=== PATIENT | female | born 1940 | race Caucasian/White ===

== ENCOUNTER 2022-05-26 23:37 | Emergency (ER) | payer MEDICARE ==
[~2022-05-26] VITALS: Ht 172.7 cm; Wt 66.0 kg
[2022-05-26 23:55] VITALS: BP 113/53
[2022-05-27] VITALS (12 sets, daily range): BP systolic 100–124; BP diastolic 50–88
[2022-05-27 00:15] LABS: BASO% 0.6 % (0-3); EOS% 4.2 % (0-8); HEMATOCRIT 41.7 % (37.0-47.0); HEMOGLOBIN 13.2 g/dl (12.0-16.0); LYMPH% 24.6 % (15-41); MEAN CELL VOLUME 107.2 fL CALC (80.0-100.0); MEAN CORPUSCULAR HGB 33.9 pG CALC (26.0-32.0); MEAN CORPUSCULAR HGB CONC 31.7 g/dL CAL (32.0-36.0); MONO% 8.1 % (2-13); NEUT# 2.23 thou/uL (2.00-7.15); NEUT% 62.5 % (42-76); RED BLOOD COUNT 3.89 mill/uL (4.20-5.60); RED CELL DISTRI WIDTH 12.8 % (11.5-15.5)
[2022-05-27 00:16] LABS: ANION GAP 7 (6-22 (CALC)); BUN 17 mg/dL (8-23); BUN/CREATININE RATIO 25 (12-20 (CALC)); CARBON DIOXIDE 30 mmol/l (22-30); CHLORIDE 104 mmol/l (95-108); CREATININE 0.7 mg/dL (0.5-1.0); GFR FOR AFR.AMER. > 60 ML/MIN (>=60 (CALC)); GFR OTHER RACES > 60 ML/MIN (>=60 (CALC)); POTASSIUM 3.6 mmol/l (3.5-5.1); SODIUM 136 mmol/l (137-146)
== END 2022-05-27 02:30 | disposition home or self-care (01) ==
LOC: ED 23:37
PROVIDERS: Family Medicine
DX: E10.649 Type 1 diabetes mellitus with hypoglycemia without coma (principal); I10 Essential (primary) hypertension; F03.90 Unspecified dementia, unspecified severity, without behavioral disturbance, psychotic disturbance, mood disturbance, and anxiety

== ENCOUNTER 2022-07-25 10:33 | Emergency (ER) | payer MEDICARE ==
[~2022-07-25] VITALS: Ht 172.7 cm; Wt 65.0 kg
[2022-07-25] MEDS ORDERED: PREDNISONE50 MG PO ×2 (10:41→13:04)
[2022-07-25] MEDS ORDERED: PERMETHRIN5 % EX ×2 (10:41→13:04)
[2022-07-25] MEDS ORDERED: ALL DAY10 MG PO ×2 (10:41→13:04)
[2022-07-25 10:47] VITALS: BP 109/59
[2022-07-25 11:00] VITALS: BP 110/50
[2022-07-25 11:30] VITALS: BP 115/57
[2022-07-25 12:00] VITALS: BP 129/60
[2022-07-25 12:31] VITALS: BP 103/81
== END 2022-07-25 12:49 | disposition home or self-care (01) ==
LOC: ED 10:33
DX: R21 Rash and other nonspecific skin eruption (principal); L29.9 Pruritus, unspecified; I10 Essential (primary) hypertension; E11.9 Type 2 diabetes mellitus without complications; F03.90 Unspecified dementia, unspecified severity, without behavioral disturbance, psychotic disturbance, mood disturbance, and anxiety

== ENCOUNTER 2022-08-12 17:13 | Observation (INO) | payer MEDICARE ==
[~2022-08-12] VITALS: Ht 172.7 cm; Wt 49.7 kg
[2022-08-12] VITALS (21 sets, daily range): BP systolic 98–138; BP diastolic 44–83
[~2022-08-12 17:13] MED LIST: ALL DAY10 MG PO; PERMETHRIN5 % EX; PREDNISONE50 MG PO
[2022-08-12 18:06] LABS: BASO% 1.1 % (0-3); EOS% 7.6 % (0-8); HEMATOCRIT 40.4 % (37.0-47.0); HEMOGLOBIN 12.9 g/dl (12.0-16.0); IMMATURE GRANULOCYTES 0.2 % (0.0-5.0); LYMPH% 24.4 % (15-41); MEAN CORPUSCULAR HGB 32.6 pG CALC (26.0-32.0); MEAN CORPUSCULAR HGB CONC 31.9 g/dL CAL (32.0-36.0); MONO% 8.2 % (2-13); NEUT# 2.78 thou/uL (2.00-7.15); NEUT% 58.5 % (42-76); RED BLOOD COUNT 3.96 mill/uL (4.20-5.60); RED CELL DISTRI WIDTH 11.6 % (11.5-15.5)
[2022-08-12] MEDS ORDERED: ASPIRINCHW 81MG PO (18:08)
[2022-08-12] MEDS ORDERED: ATORVASTATIN CA20 MG PO (18:10)
[2022-08-12] MEDS ORDERED: PLAVIX75 MG PO (18:11)
[2022-08-12] MEDS ORDERED: CITALOPRAM20 MG PO (18:11)
[2022-08-12] MEDS ORDERED: DONEPEZIL10 MG PO (18:12)
[2022-08-12] MEDS ORDERED: HUMALOG100 UNIT/M SC (18:21)
[2022-08-12 18:26] LABS: ALKALINE PHOSPHATASE 76 u/l (38-126); ANION GAP 11 (6-22 (CALC)); BILIRUBIN, TOTAL 0.2 mg/dL (0.02-1.3); BUN 18 mg/dL (8-23); BUN/CREATININE RATIO 26 (12-20 (CALC)); CARBON DIOXIDE 26 mmol/l (22-30); CHLORIDE 104 mmol/l (95-108); CREATININE 0.7 mg/dL (0.5-1.0); GFR FOR AFR.AMER. > 60 ML/MIN (>=60 (CALC)); GFR OTHER RACES > 60 ML/MIN (>=60 (CALC)); POTASSIUM 3.5 mmol/l (3.5-5.1); SGOT/AST 26 u/l (9-36); SODIUM 138 mmol/l (137-146)
[2022-08-12] MEDS ORDERED: HUMALOG100 UNIT SC (18:30)
[2022-08-12] MEDS ORDERED: STROMECTOL3 MG PO (18:32)
[2022-08-12] MEDS ORDERED: LANTUS100 UNIT (18:33)
[2022-08-12] MEDS ORDERED: MIDODRINE10 MG PO (18:33)
[2022-08-12] MEDS ORDERED: LEVOTHYROXIN75 MC1 PO (18:37)
[2022-08-12] MEDS ORDERED: MELATONIN3 M1 PO (18:37)
[2022-08-12] MEDS ORDERED: KETOCONAZOLE2 % EX (18:38)
[2022-08-13] VITALS (33 sets, daily range): BP systolic 107–145; BP diastolic 55–128
[2022-08-13 02:41] LABS: URINE BILIRUBIN - DIPSTICK NEGATIVE (NEGATIVE); URINE BLOOD DIPSTICK NEGATIVE (NEGATIVE); URINE COLOR YELLOW; URINE GLUCOSE - DIPSTICK >=1000 mg/dL (NEGATIVE); URINE KETONE NEGATIVE (NEGATIVE); URINE PH 5.5 (4.5-8.0); URINE PROTEIN - DIPSTICK NEGATIVE (NEG-TRACE); URINE UROBILINOGEN - DIPSTICK 0.2 E.U./dL (0.2)
[2022-08-13 02:42] LABS: URINE LEUK ESTERASE NEGATIVE (NEGATIVE); URINE NITRITE - DIPSTICK POSITIVE (Negative)
[2022-08-13 02:48] LABS: URINE BACTERIA MANY hpf; URINE EPITHELIAL CELLS FEW EPI/hpf (0-FEW)
[2022-08-13 06:22] LABS: MAGNESIUM 1.9 mg/dL (1.6-2.3)
[2022-08-13] MEDS ORDERED: [UNRECOGNIZED DRUG - OTHER] EX (08:29)
[2022-08-13 09:29] LABS: HEMATOCRIT 39.4 % (37.0-47.0); HEMOGLOBIN 12.7 g/dl (12.0-16.0); MEAN CELL VOLUME 99.7 fL CALC (80.0-100.0); MEAN CORPUSCULAR HGB 32.2 pG CALC (26.0-32.0); MEAN CORPUSCULAR HGB CONC 32.2 g/dL CAL (32.0-36.0); RED BLOOD COUNT 3.95 mill/uL (4.20-5.60); RED CELL DISTRI WIDTH 11.6 % (11.5-15.5)
[2022-08-13 09:35] LABS: ALBUMIN 3.3 g/dL (3.2-5.0); ALKALINE PHOSPHATASE 93 u/l (38-126); ANION GAP 9 (6-22 (CALC)); BILIRUBIN, TOTAL 0.2 mg/dL (0.02-1.3); BUN 15 mg/dL (8-23); BUN/CREATININE RATIO 27 (12-20 (CALC)); CARBON DIOXIDE 28 mmol/l (22-30); CHLORIDE 101 mmol/l (95-108); CREATININE 0.6 mg/dL (0.5-1.0); GFR FOR AFR.AMER. > 60 ML/MIN (>=60 (CALC)); GFR OTHER RACES > 60 ML/MIN (>=60 (CALC)); POTASSIUM 4.2 mmol/l (3.5-5.1); SGOT/AST 21 u/l (9-36); SODIUM 134 mmol/l (137-146); TOTAL PROTEIN 5.8 g/dL (6.3-8.2)
== END 2022-08-13 13:45 ==
LOC: ED 17:13 → ICU 19:06
PROVIDERS: Nurse Practitioner; ADMIT Internal Medicine; ATTEND Internal Medicine
DX: E10.649 Type 1 diabetes mellitus with hypoglycemia without coma (principal); I10 Essential (primary) hypertension; J44.9 Chronic obstructive pulmonary disease, unspecified; E03.9 Hypothyroidism, unspecified; F03.90 Unspecified dementia, unspecified severity, without behavioral disturbance, psychotic disturbance, mood disturbance, and anxiety; B86 Scabies; Z79.4 Long term (current) use of insulin; Z20.822 Contact with and (suspected) exposure to COVID-19

== ENCOUNTER 2022-12-25 17:37 | Emergency (ER) | payer MEDICARE ==
[~2022-12-25] VITALS: Ht 172.7 cm; Wt 58.0 kg
[2022-12-25] VITALS (7 sets, daily range): BP systolic 131–164; BP diastolic 61–111
[~2022-12-25 17:37] MED LIST changes: +ASPIRINCHW 81MG PO; +ATORVASTATIN CA20 MG PO; +CITALOPRAM20 MG PO; +DONEPEZIL10 MG PO; +HUMALOG100 UNIT SC; +HUMALOG100 UNIT/M SC; +KETOCONAZOLE2 % EX; +LANTUS100 UNIT; +LEVOTHYROXIN75 MC1 PO; +MELATONIN3 M1 PO; +MIDODRINE10 MG PO; +PLAVIX75 MG PO; +STROMECTOL3 MG PO; +[UNRECOGNIZED DRUG - OTHER] EX
[2022-12-25 18:17] LABS: URINE BILIRUBIN - DIPSTICK Negative (NEGATIVE); URINE BLOOD DIPSTICK Trace-lysed (NEGATIVE); URINE GLUCOSE - DIPSTICK >=1000 mg/dL (NEGATIVE); URINE KETONE 15 mg/dL (NEGATIVE); URINE LEUK ESTERASE Negative (NEGATIVE); URINE NITRITE - DIPSTICK Negative (Negative); URINE PH 6.5 (4.5-8.0); URINE PROTEIN - DIPSTICK Negative (NEG-TRACE); URINE SPECIFIC GRAVITY 1.015; URINE UROBILINOGEN - DIPSTICK 0.2 E.U./dL (0.2)
[2022-12-25 18:17] LABS: EOS% 4.2 % (0-8); HEMATOCRIT 40.7 % (37.0-47.0); HEMOGLOBIN 13.3 g/dl (12.0-16.0); IMMATURE GRANULOCYTES 0.2 % (0.0-5.0); LYMPH% 28.7 % (15-41); MEAN CORPUSCULAR HGB 32.7 pG CALC (26.0-32.0); MEAN CORPUSCULAR HGB CONC 32.7 g/dL CAL (32.0-36.0); MONO% 6.1 % (2-13); NEUT# 2.44 thou/uL (2.00-7.15); NEUT% 59.8 % (42-76); RED BLOOD COUNT 4.07 mill/uL (4.20-5.60); RED CELL DISTRI WIDTH 11.6 % (11.5-15.5)
[2022-12-25 18:18] LABS: URINE COLOR Yellow
[2022-12-25 18:22] LABS: ALBUMIN 3.9 g/dL (3.2-5.0); ALKALINE PHOSPHATASE 131 u/l (38-126); ANION GAP 12 (6-22 (CALC)); BUN 20 mg/dL (8-23); BUN/CREATININE RATIO 27 (12-20 (CALC)); CARBON DIOXIDE 29 mmol/l (22-30); CHLORIDE 95 mmol/l (95-108); CREATININE 0.7 mg/dL (0.5-1.0); GFR FOR AFR.AMER. > 60 ML/MIN (>=60 (CALC)); GFR OTHER RACES > 60 ML/MIN (>=60 (CALC)); LIPASE 137 u/l (23-300); POTASSIUM 4.9 mmol/l (3.5-5.1); SGOT/AST 29 u/l (9-36); SODIUM 131 mmol/l (137-146); TOTAL PROTEIN 6.3 g/dL (6.3-8.2)
[2022-12-25 18:29] LABS: BILIRUBIN, TOTAL 0.6 mg/dL (0.02-1.3)
[2022-12-25 18:30] LABS: ACT PARTIAL THROMBO TIME 26.1 SECONDS (20.0-32.5); INTERNATIONAL NORMALIZED RATIO 1.1 RATIO (0.7-1.3); PROTHROMBIN TIME 10.2 SECONDS (9.0-12.5)
== END 2022-12-25 21:06 | disposition home or self-care (01) ==
LOC: ED 17:37
PROVIDERS: Emergency Medicine
DX: E11.65 Type 2 diabetes mellitus with hyperglycemia (principal); I10 Essential (primary) hypertension; F03.90 Unspecified dementia, unspecified severity, without behavioral disturbance, psychotic disturbance, mood disturbance, and anxiety; F17.200 Nicotine dependence, unspecified, uncomplicated; Z79.4 Long term (current) use of insulin

== ENCOUNTER 2023-01-16 22:49 | Emergency (ER) | payer MEDICARE ==
[2023-01-16 22:57] VITALS: BP 124/87
[2023-01-16 23:01] VITALS: BP 140/69
[2023-01-16 23:15] VITALS: BP 136/72
[2023-01-16 23:38] LABS: BASO% 0.9 % (0-3); EOS% 4.6 % (0-8); HEMATOCRIT 39.1 % (37.0-47.0); HEMOGLOBIN 12.4 g/dl (12.0-16.0); LYMPH% 29.6 % (15-41); MEAN CELL VOLUME 103.4 fL CALC (80.0-100.0); MEAN CORPUSCULAR HGB 32.8 pG CALC (26.0-32.0); MEAN CORPUSCULAR HGB CONC 31.7 g/dL CAL (32.0-36.0); MONO% 7.9 % (2-13); NEUT# 2.46 thou/uL (2.00-7.15); RED BLOOD COUNT 3.78 mill/uL (4.20-5.60); RED CELL DISTRI WIDTH 12.2 % (11.5-15.5)
[2023-01-16 23:57] LABS: ALKALINE PHOSPHATASE 129 u/l (38-126); ANION GAP 11 (6-22 (CALC)); BILIRUBIN, TOTAL 0.6 mg/dL (0.02-1.3); BUN 18 mg/dL (8-23); BUN/CREATININE RATIO 23 (12-20 (CALC)); CARBON DIOXIDE 25 mmol/l (22-30); CHLORIDE 100 mmol/l (95-108); CREATININE 0.8 mg/dL (0.5-1.0); GFR FOR AFR.AMER. > 60 ML/MIN (>=60 (CALC)); GFR OTHER RACES > 60 ML/MIN (>=60 (CALC)); LIPASE 143 u/l (23-300); POTASSIUM 4.3 mmol/l (3.5-5.1); SGOT/AST 34 u/l (9-36); SODIUM 132 mmol/l (137-146); TOTAL PROTEIN 6.8 g/dL (6.3-8.2)
[2023-01-17 02:02] LABS: URINE BILIRUBIN - DIPSTICK Negative (NEGATIVE); URINE BLOOD DIPSTICK Trace-intact (NEGATIVE); URINE GLUCOSE - DIPSTICK 500 mg/dL (NEGATIVE); URINE KETONE Negative (NEGATIVE); URINE LEUK ESTERASE Negative (NEGATIVE); URINE UROBILINOGEN - DIPSTICK 0.2 E.U./dL (0.2)
[2023-01-17 02:03] LABS: URINE COLOR Yellow; URINE NITRITE - DIPSTICK Positive (Negative)
[2023-01-17 02:04] LABS: URINE PROTEIN - DIPSTICK Negative (NEG-TRACE)
[2023-01-17 02:13] LABS: URINE BACTERIA MANY hpf; URINE EPITHELIAL CELLS FEW EPI/hpf (0-FEW)
[2023-01-17 02:52] VITALS: BP 136/72
== END 2023-01-17 08:44 | disposition home or self-care (01) ==
LOC: ED 22:49
PROVIDERS: Emergency Medicine
DX: E11.65 Type 2 diabetes mellitus with hyperglycemia (principal); I10 Essential (primary) hypertension; I25.5 Ischemic cardiomyopathy; E78.5 Hyperlipidemia, unspecified; E03.9 Hypothyroidism, unspecified; F03.A0 Unspecified dementia, mild, without behavioral disturbance, psychotic disturbance, mood disturbance, and anxiety; F41.9 Anxiety disorder, unspecified; F32.A Depression, unspecified; Z79.4 Long term (current) use of insulin

== ENCOUNTER 2023-05-01 08:54 | Emergency (ER) | payer MEDICARE ==
[2023-05-01] VITALS (18 sets, daily range): BP systolic 86–150; BP diastolic 49–74
[~2023-05-01] VITALS: Ht 172.7 cm; Wt 58.0 kg
[~2023-05-01 08:54] MED LIST changes: +LYUMJEV100 UNIT/M; +LYUMJEV100 UNIT/M SC; +OMNICEF300 MG PO
[2023-05-01 09:32] LABS: BASO% 0.3 % (0-3); EOS% 0.8 % (0-8); HEMATOCRIT 43.6 % (37.0-47.0); HEMOGLOBIN 14.1 g/dl (12.0-16.0); LYMPH% 11.5 % (15-41); MEAN CELL VOLUME 102.3 fL CALC (80.0-100.0); MEAN CORPUSCULAR HGB 33.1 pG CALC (26.0-32.0); MEAN CORPUSCULAR HGB CONC 32.3 g/dL CAL (32.0-36.0); MONO% 1.9 % (2-13); NEUT# 5.42 thou/uL (2.00-7.15); NEUT% 85.5 % (42-76); RED BLOOD COUNT 4.26 mill/uL (4.20-5.60); RED CELL DISTRI WIDTH 11.8 % (11.5-15.5)
[2023-05-01 09:42] LABS: BUN 22 mg/dL (8-23); BUN/CREATININE RATIO 34 (12-20 (CALC)); CARBON DIOXIDE 23 mmol/l (22-30); CHLORIDE 100 mmol/l (95-108); CREATININE 0.7 mg/dL (0.5-1.0); GFR FOR AFR.AMER. > 60 ML/MIN (>=60 (CALC)); GFR OTHER RACES > 60 ML/MIN (>=60 (CALC)); SGOT/AST 31 u/l (9-36); SODIUM 135 mmol/l (137-146); TOTAL PROTEIN 7.3 g/dL (6.3-8.2)
[2023-05-01 09:50] LABS: ALBUMIN 4.7 g/dL (3.2-5.0); ALKALINE PHOSPHATASE 111 u/l (38-126); ANION GAP 17 (6-22 (CALC)); BILIRUBIN, TOTAL 1.2 mg/dL (0.02-1.3); POTASSIUM 4.7 mmol/l (3.5-5.1)
[2023-05-01 10:47] LABS: URINE BILIRUBIN - DIPSTICK Negative (NEGATIVE); URINE BLOOD DIPSTICK Negative (NEGATIVE); URINE GLUCOSE - DIPSTICK 500 mg/dL (NEGATIVE); URINE KETONE 80 mg/dL (NEGATIVE); URINE LEUK ESTERASE Negative (NEGATIVE); URINE NITRITE - DIPSTICK Negative (Negative); URINE PH 5.5 (4.5-8.0); URINE PROTEIN - DIPSTICK Negative (NEG-TRACE); URINE UROBILINOGEN - DIPSTICK 0.2 E.U./dL (0.2)
[2023-05-01 10:51] LABS: URINE COLOR Yellow
== END 2023-05-01 15:33 | disposition home or self-care (01) ==
LOC: ED 08:54
PROVIDERS: Emergency Medicine
DX: E11.65 Type 2 diabetes mellitus with hyperglycemia (principal); I10 Essential (primary) hypertension; I25.10 Atherosclerotic heart disease of native coronary artery without angina pectoris; F03.A4 Unspecified dementia, mild, with anxiety; F32.A Depression, unspecified; J44.9 Chronic obstructive pulmonary disease, unspecified; Z79.4 Long term (current) use of insulin; Z72.0 Tobacco use

== ENCOUNTER 2023-05-19 07:11 | Inpatient (IN) | payer MEDICARE ==
[2023-05-19] VITALS (94 sets, daily range): BP systolic 66–150; BP diastolic 36–81
[~2023-05-19] VITALS: Ht 172.7 cm; Wt 55.0 kg
[~2023-05-19 07:11] MED LIST changes: +ALL DAY ALLG10 MG PO; +ARICEPT PO; +PROTONIX40 M2 PO
--- NOTE | 2023-05-19 07:11 | NUR ---
PT TO ER BED 10 FOR TRIAGE AT THIS TIME VIA EMS STRETCHER IN NO APPARENT DISTRESS. IV INITIATED, ACCUCHECK COMPLETED WITH A RESULT OF 519, LABS COLLECTED, AND EKG COMPLETED. VSS. CALL LIGHT WITHIN REACH AND PT AWAITING EDP EXAM AND ORDERS.
[2023-05-19 07:43] LABS: BASO% 0.6 % (0-3); EOS% 1.2 % (0-8); HEMATOCRIT 43.1 % (37.0-47.0); HEMOGLOBIN 13.6 g/dl (12.0-16.0); IMMATURE GRANULOCYTES 0.2 % (0.0-5.0); LYMPH% 14.6 % (15-41); MEAN CELL VOLUME 102.9 fL CALC (80.0-100.0); MEAN CORPUSCULAR HGB 32.5 pG CALC (26.0-32.0); MEAN CORPUSCULAR HGB CONC 31.6 g/dL CAL (32.0-36.0); MONO% 3.2 % (2-13); NEUT# 5.26 thou/uL (2.00-7.15); NEUT% 80.2 % (42-76); RED BLOOD COUNT 4.19 mill/uL (4.20-5.60); RED CELL DISTRI WIDTH 12.7 % (11.5-15.5)
[2023-05-19 07:54] LABS: URINE BILIRUBIN - DIPSTICK Negative (NEGATIVE); URINE BLOOD DIPSTICK Negative (NEGATIVE); URINE GLUCOSE - DIPSTICK 500 mg/dL (NEGATIVE); URINE KETONE 40 mg/dL (NEGATIVE); URINE LEUK ESTERASE Negative (NEGATIVE); URINE NITRITE - DIPSTICK Negative (Negative); URINE PH 5.5 (4.5-8.0); URINE PROTEIN - DIPSTICK Negative (NEG-TRACE); URINE UROBILINOGEN - DIPSTICK 0.2 E.U./dL (0.2)
[2023-05-19 07:55] LABS: URINE COLOR Yellow
--- NOTE | 2023-05-19 08:00 | NUR ---
PT SITTING UP IN BED STILL HAVING SOME NAUSEA, VSS, NAD NOTED, CALL LIGHT IN REACH.
[2023-05-19] MEDS ORDERED: HUMALOG100 UNIT/M SC (08:15)
[2023-05-19 08:27] LABS: ALKALINE PHOSPHATASE 93 u/l (38-126); BUN 19 mg/dL (8-23); BUN/CREATININE RATIO 28 (12-20 (CALC)); CHLORIDE 100 mmol/l (95-108); CREATININE 0.7 mg/dL (0.5-1.0); GFR FOR AFR.AMER. > 60 ML/MIN (>=60 (CALC)); GFR OTHER RACES > 60 ML/MIN (>=60 (CALC)); SGOT/AST 34 u/l (9-36); SODIUM 135 mmol/l (137-146); TOTAL PROTEIN 6.7 g/dL (6.3-8.2)
[2023-05-19 08:28] LABS: TSH, 3RD GENERATION 1.34 uIU/mL (0.47 - 4.68)
--- NOTE | 2023-05-19 08:35 | NUR ---
PT JUST RETURNED FROM CT, STILL SPITTING UP A CLEAR THICK MUCUS WITH GREEN CHUNKS, VSS, NAD NOTED, GIVEN CLEAN WARM BLANKET, CALL LIGHT IN REACH, PROVIDER NOTIFIED.
[2023-05-19 08:42] LABS: ALBUMIN 4.3 g/dL (3.2-5.0); ANION GAP 20 (6-22 (CALC)); CARBON DIOXIDE 20 mmol/l (22-30); POTASSIUM 4.5 mmol/l (3.5-5.1)
--- NOTE | 2023-05-19 09:25 | NUR ---
IN ROOM TO MEDICATE PT PER EMAR FOR RBS OF 509, PT STILL HAVING N/V, VSS, CALL LIGHT IN REACH, WILL ADVISE PROVIDER OF S/S.
--- NOTE | 2023-05-19 10:15 | NUR ---
PT JUST RETRUNED FROM CT, NAD NOTED, VSS, CALL LIGHT IN REACH, PT DENIES ANY C/O NAUSEA AT THIS TIME, WILL HOLD MEDICATION ORDERED FOR NAUSEA, CALL LIGHT IN REACH.
--- NOTE | 2023-05-19 10:56 | NUR ---
ACCU CHECK DONE, PT A&O TO PERSON, HAVING SOME QUESTIONABLE HALLUCINATIONS, PROVIDER NOTIFIED, ABG ORDERED. PT O2 SAT 90-94 ON ROOM AIR, VSS, CALL LIGHT IN REACH.
--- NOTE | 2023-05-19 11:27 | NUR ---
PT HAVING SOME HYPOTENSION, PROVIDER NOTIFIED.
--- NOTE | 2023-05-19 11:45 | NUR ---
IN ROOM DUE TO PT BEING HYPOTENSIVE, PROVIDER AT BEDSIDE FOR EXAM, V/O GIVEN FOR RECTAL TEMP (99.0), 2ND LITER FLUIDS.
--- NOTE | 2023-05-19 12:18 | NUR ---
IN ROOM TO GIVE MEAL TRAY, PT DECLINED TO EAT AT THIS TIME, DENIED ANY NAUSEA, B/P 112/46 (63) HR 73, I/V FLUIDS RUNNING PER EMAR.
--- NOTE | 2023-05-19 12:35 | NUR ---
STUDENT NURSE IN ROOM TO CHANGE PT DEPENDS, HAS SM MUSHY BROWN BM.
--- NOTE | 2023-05-19 13:55 | NUR ---
IN ROOM PT HYPOTENSIVE, PROVIDER ALERTED, V/O TO GIVE 3RD LITER FLUIDS STAT, OBTAIN CONSENT FOR CENTRAL LINE, PROVIDER IN ROOM AT APPROX 1400 TO DO CENTRAL LINE (R) GROIN.
--- NOTE | 2023-05-19 15:30 | NUR ---
REPORT CALLED TO FRANCES IN ICU.
--- NOTE | 2023-05-19 15:37 | NUR ---
S: MENDY SORENSON is a 82 F who presents with a preliminary impression of sepsis. She has a history of hypertension, CAD, dementia, anxiety,depresion, COPD and scabies. All medications in patient's chart were reviewed. O: VS: BP: 104/41 mmHg, P: 75 bpm, RR: 20 bpm, T: 99.0 F Wt: 50.8 kg, HT: 68 in, Scr: 0.7, CrCl: 35.4 ml/min A: Blood culture is pending. P: Vancomycin ordered for pharmacy to dose. Start Vancomycin 750 mg IV Q24H. Vancomycin trough is drawn before the 4th dose on 05/22/23 @1430. Vancomycin goal trough is between 15-20 mcg/ml. Pharmacy will follow and or advise on antibiotics use as needed.
--- NOTE | 2023-05-19 16:00 | NUR ---
PT BROUGHT TO ROOM FROM ER PER STRETCHER, PT HAS DEMENTIA IN HX. IS ORIENTED TO NAME ONLY. UNABLE TO OBTAIN HX DUE TO PTS INABILITY TO REMEMBER. VITAL SIGNS AT THIS TIME ARE WITHIN LIMITS. BLOOD PRESSURE IS 101/43, PT MOVING ALL EXTREMITIES. SIDE RAILS UP DUE TO PT WANTING TO GET UP OUT OF BED, WARM BLANKET GIVEN AND TV TURNED ON. CALL LIGHT WITHIN REACH. WILL CONTINUE TO MONITER.
--- NOTE | 2023-05-19 16:30 | NUR ---
ASSSSMENT COMPLETED ON PT. PT BROUGHT TO ICU DUE TO HYPERGLYCEMIA. LAST REPORTED BLOOD SUGAR IN ED WAS IN 400'S. PT IS AWAKE BUT SLEEPY. NOT ORIENTED TO PERSON OR PLACE. PT HAS HX OF DEMENTIA. LEVOPHED ORDRED BUT NOT STARTED BP HAS BEEN STABLE. LUNGS DIMINISHED; PT IS ON 2LNC. HEART SOUNDS S1S2. PT IS NSR ON MONITOR. BOWEL SOUNDS ACTIVE. PT INCONTINENT AND WEARING BRIEF. PULSES WEAK ALL EXTREMETIES. SKIN W/D/I. DENIES ANY PAIN OR NEEDS AT THIS TIME. CALL LIGHT IN REACH. VSS.
--- NOTE | 2023-05-19 17:30 | NUR ---
SPOKE WITH PT'S SON. ZHENG, ON THE PHONE TO UPDATE ON PT STATUS. HE INFORMED ME THAT HE IS THE POA AND THAT HIS MOTHER IS A DNR. PT IS FROM [place]. [facility] CONSENT TO HAVE POA AND DNR PAPERWORK FAXED FROM [facility]. PHONE WAS OFFERED TO THE PATIENT TO ALLOW HER SON TO SPEAK WITH HER BUT SHE DECLINED. NO CHANGES TO PT STATUS. VSS.
--- NOTE | 2023-05-19 18:00 | NUR ---
PAPERWORK RECIEVED FROM [facility] PARTJoann. DR. VALVERDE NOTIFIED OF PT CODE STATUS.
--- NOTE | 2023-05-19 19:30 | NUR ---
awakens easily then becomes combative staff attempting to hit & cursing. attempting to reorient without success. o2 cont per nc. bike technician shows sinus rhythm pacs pvcs. ivf infusing per rt fem site. po fluids taken well. voids incont. diaper in place. turns self. fall precautions & bed alarm conts.
--- NOTE | 2023-05-19 23:00 | NUR ---
incont of urine. diaper changed.
[2023-05-20] VITALS (22 sets, daily range): BP systolic 87–243; BP diastolic 32–89
--- NOTE | 2023-05-20 00:01 | NUR ---
eyes closed. no distress. registered nurse cardiac shows sinus rhythm pacs pvcs.
--- NOTE | 2023-05-20 02:00 | NUR ---
resting quietly. resps even & unlabored. no apparent distress.
--- NOTE | 2023-05-20 04:30 | NUR ---
blood drawn & sent to lab.
[2023-05-20 05:09] LABS: BASO% 0.1 % (0-3); IMMATURE GRANULOCYTES 0.2 % (0.0-5.0); LYMPH% 10.6 % (15-41); MEAN CELL VOLUME 105.1 fL CALC (80.0-100.0); MEAN CORPUSCULAR HGB 34.2 pG CALC (26.0-32.0); MEAN CORPUSCULAR HGB CONC 32.5 g/dL CAL (32.0-36.0); MONO% 7.4 % (2-13); NEUT# 9.24 thou/uL (2.00-7.15); NEUT% 81.7 % (42-76); RED BLOOD COUNT 3.13 mill/uL (4.20-5.60)
[2023-05-20 05:16] LABS: HEMATOCRIT 32.9 % (37.0-47.0); HEMOGLOBIN 10.7 g/dl (12.0-16.0)
[2023-05-20 05:17] LABS: ALBUMIN 3.5 g/dL (3.2-5.0); ALKALINE PHOSPHATASE 71 u/l (38-126); ANION GAP 12 (6-22 (CALC)); BILIRUBIN, TOTAL 0.6 mg/dL (0.02-1.3); BUN 16 mg/dL (8-23); BUN/CREATININE RATIO 26 (12-20 (CALC)); C-REACTIVE PROTEIN 0.7 mg/dL (0-0.9); CARBON DIOXIDE 19 mmol/l (22-30); CHLORIDE 112 mmol/l (95-108); CREATININE 0.6 mg/dL (0.5-1.0); GFR FOR AFR.AMER. > 60 ML/MIN (>=60 (CALC)); GFR OTHER RACES > 60 ML/MIN (>=60 (CALC)); MAGNESIUM 1.8 mg/dL (1.6-2.3); POTASSIUM 4.3 mmol/l (3.5-5.1); SGOT/AST 41 u/l (9-36); SODIUM 139 mmol/l (137-146); TOTAL PROTEIN 5.6 g/dL (6.3-8.2)
--- NOTE | 2023-05-20 06:40 | NUR ---
orders res'd per dr quinones. blood drawn & taken to lab.
--- NOTE | 2023-05-20 07:00 | NUR ---
TELE-CARDIOLOGY CONSULT ORDERED. AWAITING PTT RESULTSBEFORE STARTING HEPARIN GTT REQUESTED BY DR. VALVERDE.
--- NOTE | 2023-05-20 07:47 | NUR ---
REPORT RECIEVED FROM NIGHT RN. PT IS ORIENTED TO PERSON ONLY. LUNGS DIMINISHED; PT IS ON 2LNC. NO COUGH OR SOB NOTED. HEART SOUNDS S1S2; PT IS NSR ON MONITOR. BOWEL SOUNDS ACTIVE; ABDOMEN SOFT, NON-TENDER. PULSES WEAK AL EXTREMETIES. SKIN C/D/I. PT HAS BRIEF ON WHICH IS CLEAN/DRY. AFEBRILE. PT REPOSITIONED IN BED AND ASSISTED TO START EATING BREAKFAST. PT DENIES ANY PAIN. BELONGINGS AND CALL LIGHT IN REACH. VSS.
--- NOTE | 2023-05-20 08:30 | NUR ---
TELE-CARDIOLOGY CONSULT COMPLETED WITH DR. MARQUEZ.
--- NOTE | 2023-05-20 09:00 | NUR ---
DR. VALVERDE AT BEDSIDE TO ASSESS PT. OKAY TO GIVE ASA AND PLAVIX. DR. VALVERDE TO DC LOVENOX. PT IS STABLE CONDITION, DENIES ANY CHEST PAIN OR NEEDS AT THIS TIME.
--- NOTE | 2023-05-20 10:30 | NUR ---
PHONE CALL RECIEVED FROM PT'S SON, ZHENG. UPDATED ON PT STATUS AND PLAN OF CARE. PHONE GIVEN TO PT SO THAT SHE CAN SPEAK WITH HER SON. NO CHANGES TO PT STATUS. CALL LIGHT AND BELONGINGS WITHIN REACH. VSS.
--- NOTE | 2023-05-20 11:45 | NUR ---
PT REPOSITIONED IN BED AND WOKEN UP FOR LUNCH. PT GIVEN LUNCH TRAY AND ENSURE. LIGHTS TURNED ON BUT PT NOT WANTING TO EAT AND IS FALLING BACK ASLEEP. LUNCH TRAY WILL REMAIN AT BEDSIDE IN CASE PT WAKES UP MORE AND WOULD LIKE TO EAT LATER. VSS.
--- NOTE | 2023-05-20 13:25 | NUR ---
INCONTINENT CARE PROVIDED. PT REPOSITIONED.
--- NOTE | 2023-05-20 13:32 | NUR ---
PT MEDICATIONS SENT TO PHARMACY.
--- NOTE | 2023-05-20 14:36 | NUR ---
PT'S PTT THERAPEUTIC, NO CHANGES MADE TO HEPARIN DOSE. REVIEWED DOSING WITH SECOND RN.
--- NOTE | 2023-05-20 16:00 | NUR ---
INCONTINENT CARE PROVIDED. PT REPOSITIONED. DENIED ANY PAIN OR NEEDS AT THIS TIME. VSS.
--- NOTE | 2023-05-20 17:30 | NUR ---
REPORT CALLED TO ACCEPTING RN ON MS UNIT. ALL QUESTIONS ANSWERED.
--- NOTE | 2023-05-20 17:55 | NUR ---
BLOOD GLUCOSE CHECKED; READ 60. PT DRANK 2 ORANGE JUICES AND IS ASYMPTOMATIC. PT ALERT AND ABLE TO STAND AND GET TO WHEELCHAIR WITH MINIMAL ASSISTANCE. PT BELONGINGS TAKEN WITH HER TO MS FLOOR. PT SIUATED IN BED WITH DINNER AT BEDSIDE. NO FURTHER QUESTIONS FROM ACCEPTING RN.
--- NOTE | 2023-05-20 19:42 | NUR ---
REPORT RECEIVED FROM ICU NURSE. PATIENT ARRIVED TO ROOM 262 AT 1540. ALERT AND ORIENTED AND ABLE TO MAKE NEEDS KNOWN. DENIES PAIN AND DISCOMFORT UPON ARRIVAL. PATIENT ABLE TO STAND TO BE WEIGHED. SUPPER PROVIDED. RESPIRATIONS EVEN AND UNLABORED ON ROOM AIR. SKIN INTACT. HEPARING DRIP IN PLACE. IV MAINTENANCE FLUIDS IN PLACE. ORIENTED TO ROOM AND SURROUNDINGS. CALL LIGHT WITHIN REACH.
--- NOTE | 2023-05-20 19:45 | NUR ---
PATIENT OBSERVED RESTING IN BED WITH HOB ELEVATED. ALERT AND ABLE TO MAKE NEEDS KNOWN. ASSESSMENT COMPLETE. NO COMPLAINTS OF CHEST PAIN. NO DISTRESS NOTED. HEPARIN DRIP REMAINS INFUSING PER PROTOCOL. IVF REMAINS INFUSING ORDER READS. TRIPLE LUMEN IV TO RIGHT GROIN IN PLACE. BED IN LOW POSITION. CALL KATZ IN REACH.
--- NOTE | 2023-05-20 23:50 | NUR ---
PATIENT REMAINS RESTING IN BED. NO DISTRESS NOTED. NO COMPLAINTS OF PAIN. HEPARIN DRIP REMAINS INFUSING PER PROTOCOL. BED REMAINS IN LOW POSITION. CALL KATZ IN REACH.
[2023-05-21 00:33] VITALS: BP 123/59
[2023-05-21 03:15] LABS: HEMATOCRIT 30.8 % (37.0-47.0); HEMOGLOBIN 9.9 g/dl (12.0-16.0); MEAN CELL VOLUME 105.1 fL CALC (80.0-100.0); MEAN CORPUSCULAR HGB 33.8 pG CALC (26.0-32.0); MEAN CORPUSCULAR HGB CONC 32.1 g/dL CAL (32.0-36.0); RED BLOOD COUNT 2.93 mill/uL (4.20-5.60); RED CELL DISTRI WIDTH 13.3 % (11.5-15.5)
[2023-05-21 03:22] LABS: BUN 16 mg/dL (8-23); BUN/CREATININE RATIO 27 (12-20 (CALC)); CHLORIDE 113 mmol/l (95-108); CREATININE 0.6 mg/dL (0.5-1.0); GFR FOR AFR.AMER. > 60 ML/MIN (>=60 (CALC)); GFR OTHER RACES > 60 ML/MIN (>=60 (CALC)); MAGNESIUM 1.8 mg/dL (1.6-2.3); SODIUM 141 mmol/l (137-146)
[2023-05-21 03:24] LABS: ANION GAP 5 (6-22 (CALC)); CARBON DIOXIDE 26 mmol/l (22-30); POTASSIUM 3.4 mmol/l (3.5-5.1)
[2023-05-21 03:53] VITALS: BP 137/62
--- NOTE | 2023-05-21 04:44 | NUR ---
AT 0327 CALL RECEIVED FROM LAB BY GRZEGORZ. GLUCOSE 41. WENT AND CHECKED ON PATIENT. ASYMPTOMATIC. PROVIDED JUICE TO PATIENT. RECECKED SUGAR AT 0404, BLOOD SUGAR 56. PATIENT REMAINS ASYMPTOMATIC. PROVIDED PATIENT WITH ANOTHER JUICE AND CRACKERS WITH PEANUT BUTTER. PATIENT TOLERATED WELL. BLOOD SUGAR RECHECKED AT 0444, BLOOD SUGAR 98.
--- NOTE | 2023-05-21 05:49 | NUR ---
SPOKE WITH MECHANICAL TECHNOLOGIST PROVIDER ABOUT PATIENTS LOW BLOOD SUGAR. PROVIDER UPDATED PATIENT MEDS.
--- NOTE | 2023-05-21 07:00 | NUR ---
SHIFT CHANGE REPORT, PT AWAKE ALERT AND ORIENTED RESTING IN BED, NO C/O DISCOMFORT AT THIS TIME, IVR INFUSING TO SITE IN RFEM, HEPARIN INFUSING @ 13ML ALSO, TELE MONITOR IN PLACE, CALL KATZ IN REACH AND BED LOCKED IN LOWEST POSITION.
[2023-05-21 07:18] VITALS: BP 134/61
[2023-05-21 11:20] VITALS: BP 144/69
--- NOTE | 2023-05-21 11:37 | NUR ---
CONDITION STABLE, SET UP FOR MEAL AT THIS TIME, ALL NEEDS ADDRESSED
[2023-05-21 15:07] VITALS: BP 138/57
[2023-05-21 19:15] VITALS: BP 135/59
--- NOTE | 2023-05-21 19:37 | NUR ---
PT RESTING IN BED, NO SIGNS OF DISTRESS NOTED, RESP EVEN AND UNLABORED. BEDSIDE REPORT CONDUCTED WITH DALE FLOOD, CONFIRMED HEPARIN GTT AT RATE 850UNITS/HR AND 17 ML/MIN, PT DENIES ANY NEEDS OR COMPLAINTS AT THIS TIME. CALL LIGHT IN REACH, BED ALARM FOR SAFETY, CONTINUE TO MONITOR.
--- NOTE | 2023-05-21 21:08 | NUR ---
PT RESTING IN BED, NO SIGNS OF DISTRESS NOTED, RESP EVEN AND UNLABORED. PT ALERT TO SELF. BED ALARM FOR SAFETY, DISCUSSED POC, PT RECEPTIVE TO INFORMATION. PT ON 02 2L NC, DENIES HOME USE. PT STATES SHE IS A SMOKER. PT HAS A TL CENTRAL LINE TO R FEMORAL, SITE APPEARS WELL APPROXIMATED, DRESSING CDI. NS INFUSING AND HEPARIN GTT INFUSING. SKIN INTACT. NO SIGNS OF BLEEDING NOTED. ASSESSMENT REVIEW COMPLETED, PT MEDICATED PER JUN, CALL LIGHT IN REACH,CONTINUE TO MONITOR.
--- NOTE | 2023-05-21 21:48 | NUR ---
RESULTS OF PTT REVIEWED, PT THERAPEUTIC AT THIS TIME NO ADJUSTMENTS MADE TO HEPARIN GTT. NO SIGNS OF BLEEDING, PT TOLERATING WELL. SITE CDI. PT DENIES ANY NEEDS OR COMPLAINTS, CALL LIGHT IN REACH, BED ALARM FOR SAFETY, CONTINUE TO MONITOR.
[2023-05-22 00:33] VITALS: BP 143/69
--- NOTE | 2023-05-22 00:33 | NUR ---
PT RESTING IN BED WITH EYES CLOSED, EASILY AROUSED TO VERBAL STIMULI, VITALS OBTAINED BY TECH, PT DENIES ANY NEEDS OR COMPLAINTS, CALL LIGHT IN REACH, BED ALARM FOR SAFETY, CONTINUE TO MONITOR.
--- NOTE | 2023-05-22 03:56 | NUR ---
PT RESTING IN BED WITH EYES CLOSED, NO SIGNS OF DISTRESS NOTED, RESPS EVEN AND UNLABORED. BED ALARM FOR SAFTEY, POC ONGOING.
[2023-05-22 04:19] VITALS: BP 136/69
[2023-05-22 06:57] LABS: BASO% 0.4 % (0-3); EOS% 1.9 % (0-8); HEMATOCRIT 31.6 % (37.0-47.0); HEMOGLOBIN 10.2 g/dl (12.0-16.0); IMMATURE GRANULOCYTES 0.2 % (0.0-5.0); LYMPH% 33.3 % (15-41); MEAN CORPUSCULAR HGB 34.2 pG CALC (26.0-32.0); MEAN CORPUSCULAR HGB CONC 32.3 g/dL CAL (32.0-36.0); MONO% 6.9 % (2-13); NEUT# 2.75 thou/uL (2.00-7.15); NEUT% 57.3 % (42-76); RED BLOOD COUNT 2.98 mill/uL (4.20-5.60)
[2023-05-22 07:19] LABS: ALBUMIN 2.6 g/dL (3.2-5.0); ALKALINE PHOSPHATASE 56 u/l (38-126); ANION GAP 3 (6-22 (CALC)); BILIRUBIN, TOTAL 0.4 mg/dL (0.02-1.3); BUN 13 mg/dL (8-23); BUN/CREATININE RATIO 27 (12-20 (CALC)); CARBON DIOXIDE 25 mmol/l (22-30); CHLORIDE 112 mmol/l (95-108); CREATININE 0.5 mg/dL (0.5-1.0); GFR FOR AFR.AMER. > 60 ML/MIN (>=60 (CALC)); GFR OTHER RACES > 60 ML/MIN (>=60 (CALC)); MAGNESIUM 1.7 mg/dL (1.6-2.3); POTASSIUM 3.2 mmol/l (3.5-5.1); SGOT/AST 32 u/l (9-36); SODIUM 137 mmol/l (137-146); TOTAL PROTEIN 4.6 g/dL (6.3-8.2)
[2023-05-22 07:40] VITALS: BP 175/79
--- NOTE | 2023-05-22 07:44 | NUR ---
SHIFT CHANGE REPORT, PT AWAKE DISORIENTED AND CONFUSED AT THIS TIME, ASSISTED TO BSC THEN TO RECLINER, OJ GIVEN, MEAL SERVED, WILL RECHECK BG SOON, CHAIR ALARM IN PLACE, TELE MONITOR IN PLACE, HEP GTT IN PROGRESS ORDERED, WILL CONTINUE TO MONITOR.
--- NOTE | 2023-05-22 12:00 | NUR ---
SITTING IN RECLINER, NEEDS FREUENT ORIENTATION OF TIME AND PLACE, CALL KATZ IN REACH.
--- NOTE | 2023-05-22 16:00 | NUR ---
HEPARIN DRIP D/C PER MD'S ORDER, NEEDS ANTICIPATED AND ADDRESSED.
[2023-05-22 16:09] VITALS: BP 160/72
[2023-05-22 19:09] VITALS: BP 129/65
--- NOTE | 2023-05-22 20:00 | NUR ---
PT SITTING ON SIDE OF BED. NO DISTRESS NOTED ON EXAM. IV SITE FLUSHED ON CONNECTED TO IV FLUIDS PER ORDER. GUARDS ON DUTY. PT REPORTS NO PAIN. VS WNL ON RA. CALL LIGHT WITHIN REACH. PLAN OF CARE ONGOING.
--- NOTE | 2023-05-23 | NUR ---
PT RESTING SLEEPING NO DISTRESS NOTED ON EXAM. CALL LIGHT WITHIN REACH. PLAN OF CARE ONGOING.
[2023-05-23 00:23] VITALS: BP 176/87
--- NOTE | 2023-05-23 02:00 | NUR ---
DURING MY ROUND NURSE NOTICED THAT PT HAD REMOVED HER FEMORAL CENTRAL LINE AND PIV WELL. NURSE APPLIED PRESSURE AND APPLIED DRESSING TO BOTH SITES. PT DOESN'T REMEMBER REMOVING IV SITES. LINENS AND GOWN CHANGES. PT REPORTS NO DISCOMFORT AT THIS TIME.
[2023-05-23 03:32] VITALS: BP 160/93
[2023-05-23 04:49] VITALS: BP 145/73
--- NOTE | 2023-05-23 04:53 | NUR ---
PT TRYING TO GET OUT OF BED MULTIPLE TIMES WITHOUT USING CALL LIGHT TO USE BSC. PT SHOWN HOW TO USE IT BUT DOESN'T USE IT PT CONFUSED ONLY ALERT TO SELF. IV SITE CHECKED WORKING PROPERLY. BED ALARM ON. CALL LIGHT WITHIN REACH. PLAN OF CARE ONGOING.
[2023-05-23 06:46] LABS: HEMATOCRIT 36.6 % (37.0-47.0); MEAN CELL VOLUME 102.2 fL CALC (80.0-100.0); MEAN CORPUSCULAR HGB 33.5 pG CALC (26.0-32.0); MEAN CORPUSCULAR HGB CONC 32.8 g/dL CAL (32.0-36.0); RED BLOOD COUNT 3.58 mill/uL (4.20-5.60); RED CELL DISTRI WIDTH 12.6 % (11.5-15.5)
[2023-05-23 06:48] VITALS: BP 149/77
[2023-05-23 07:15] LABS: ANION GAP 9 (6-22 (CALC)); BUN 7 mg/dL (8-23); BUN/CREATININE RATIO 17 (12-20 (CALC)); CARBON DIOXIDE 25 mmol/l (22-30); CHLORIDE 106 mmol/l (95-108); CREATININE 0.4 mg/dL (0.5-1.0); GFR FOR AFR.AMER. > 60 ML/MIN (>=60 (CALC)); GFR OTHER RACES > 60 ML/MIN (>=60 (CALC)); POTASSIUM 3.6 mmol/l (3.5-5.1); SODIUM 136 mmol/l (137-146)
--- NOTE | 2023-05-23 07:43 | NUR ---
SHIFT CHANGE REPORT, PT AWAKE AND ALERT, MORE ORIENTED TO PLACE TODAY, TRANSPORTED OFF UNIT AT THIS TIME TO ECHO.
[2023-05-23] MEDS ORDERED: LANTUS100 UNIT SC (11:25)
[2023-05-23 12:30] VITALS: BP 138/71
[2023-05-23 12:51] VITALS: BP 138/71
== END 2023-05-23 14:57 | DRG 637 ==
LOC: ED 07:11 → ED-I 07:27 → ED 07:27 → MS2 12:45 → ICU 15:06 → MS2 15:06 → ICU 15:07 → MS2 05-20 17:40
PROVIDERS: Family Medicine; Nurse Practitioner Family; ADMIT Student in an Organized Health Care Education/Training Program; ATTEND Student in an Organized Health Care Education/Training Program
PROC: 06HY33Z Insertion of Infusion Device into Lower Vein, Percutaneous Approach (ICD-10-PCS; principal; 2023-05-19)
DX: E11.65 Type 2 diabetes mellitus with hyperglycemia (principal); I21.A1 Myocardial infarction type 2; E87.20 Acidosis, unspecified; E86.0 Dehydration; I95.9 Hypotension, unspecified; E11.649 Type 2 diabetes mellitus with hypoglycemia without coma; I10 Essential (primary) hypertension; I25.10 Atherosclerotic heart disease of native coronary artery without angina pectoris; F03.B0 Unspecified dementia, moderate, without behavioral disturbance, psychotic disturbance, mood disturbance, and anxiety; J44.9 Chronic obstructive pulmonary disease, unspecified; E03.9 Hypothyroidism, unspecified; F32.A Depression, unspecified; K21.9 Gastro-esophageal reflux disease without esophagitis; I45.10 Unspecified right bundle-branch block; Z79.4 Long term (current) use of insulin; Z87.891 Personal history of nicotine dependence
CPT/HCPCS: J1644; J1650; J3370